=== PATIENT | male | born 1980 | race African-American/Black ===

== ENCOUNTER 2017-07-15 15:37 | Emergency (ER) | payer SELFPAY ==
[~2017-07-15] VITALS: Ht 180.3 cm; Wt 75.0 kg
[~2017-07-15 15:37] MED LIST: CEPH500C3 PO; IBUP800T23 PO; LORTA5 PO; Z.0.NO CURRENT MEDS
[2017-07-15 15:52] VITALS: BP 144/97; PULSE 95; RESP 16; TEMP 98.9; O2SAT 98
[2017-07-15] MEDS ORDERED: IBUPROFEN 800 MG TAB PO ONE (16:15)
--- NOTE | 2017-07-15 16:38 | RADRPT ---
EXAM DATE/TIME: 07/15/2017 16:14 [place] COMPARISON: No previous studies available for comparison. INDICATIONS : Left heel pain, fell landed on heel MEDICAL HISTORY : None. SURGICAL HISTORY : None. ENCOUNTER: Initial ACUITY: 2 days PAIN SCORE: 10/10 LOCATION: Left Heel FINDINGS: Two view examination of the left heel demonstrates the trabecula to be intact with no evidence of fra cture. There is a normal calcaneal angle. The soft tissues are of normal thickness. CONCLUSION: 1. No acute fracture or dislocation. Pablo Bethea MD on July 15, 2017 at 16:35 Board Certified Radiologist. This report was verified electronically.
[2017-07-15] MEDS ORDERED: IBUP1TAB7 PO (16:51)
--- NOTE | 2017-07-15 16:51 | PD ---
HPI Chief Complaint: Injury Time Seen by Provider: 16:00 Travel History International Travel<30 days: No Contact w/Intl Traveler<30days: No Traveled to known affect area: No History of Present Illness HPI 36-year-old male presents to emergency department complaining of left heel pain after injuring it from jumping off of a roof approximately 10 feet today. He said he was on the roof sleeping and he thought he was young and jumped off. Has been ambulatory on the affected extremity. Denies paresthesias, loss of sensation, decreased range of motion, decreased strength to the affected extremity. Denies hip pain or knee pain. Describes the pain as throbbing. Rates a 10/10. Aggravated with ambulation and palpation to the area. Decreased while at rest. Has not taken any medications or try any treatments to alleviate his symptoms. No primary care provider. No known allergies. Denies significant past medical history. Has no other medical complaints. No other modifying factors or associated signs and symptoms. PFSH Past Medical History Diminished Hearing: No Hypertension: Yes Social History Alcohol Use: Yes (STATES SEVERAL TIMES A WEEK) Tobacco Use: Yes (1/2 PPD) Substance Use: No (DENIES) Allergies-Medications (Allergen,Severity, Reaction): Coded Allergies: No Known Allergies (Unverified Adverse Reaction, Unknown, 07/15/17) Reported Meds & Prescriptions Reported Meds & Active Scripts Active Ibuprofen 800 Mg Tab 800 Mg PO Q6HR PRN Review of Systems Except as stated in HPI: all other systems reviewed are Neg Physical Exam Narrative GENERAL: Well-nourished, well-developed black male patient, in no acute distress SKIN: Warm and dry. HEAD: Atraumatic. Normocephalic. EYES: Pupils equal and round. No scleral icterus. No injection or drainage. ENT: Mucosa pink and moist. Airway patent. NECK: Trachea midline. CARDIOVASCULAR: Regular rate. RESPIRATORY: No accessory muscle use. GASTROINTESTINAL: Flat. MUSCULOSKELETAL: Left heel is without erythema, edema, ecchymosis; with tenderness on palpation; no obvious deformity. Left ankle is without erythema, edema, ecchymosis and without tenderness on palpation to all aspects. Left knee is with full range of motion without tenderness to palpation to the knee and just below the knee. Left lower extremity is supple nontender with 2+ pedal pulse and sensory intact and without erythema or edema; with full range of motion. No obvious deformities. No clubbing. No cyanosis. No edema. NEUROLOGICAL: Awake and alert. Oriented 3. No obvious cranial nerve deficits. Motor grossly within normal limits. Normal speech. PSYCHIATRIC: Appropriate mood and affect; insight and judgment normal. Data Data Last Documented VS Vital Signs Date Time Temp Pulse Resp B/P (MAP) Pulse Ox O2 Delivery O2 Flow Rate FiO2 07/15/17 15:52 98.9 95 16 144/97 (113) 98 Orders Orders Crutches (07/15/17 16:04) Foot, Heel Only ([id number]) (07/15/17 ) Ibuprofen (Motrin) (07/15/17 16:15) Ed Discharge Order (07/15/17 16:51) [facility] Medical Decision Making Medical Screen Exam Complete: Yes Emergency Medical Condition: Yes Medical Record Reviewed: Yes Differential Diagnosis Heel fracture, foot sprain, contusion Narrative Course 36-year-old male with left heel injury. Left heel x-ray with no acute findings. Ibuprofen administered in the ER appear crutches provided for support. Instructed patient to follow-up if symptoms persist. Ibuprofen prescribed for home. Instructed patient to follow up with primary care provider. Patient verbalizes understanding and agreement with treatment plan. Patient is medically cleared and stable for discharge. Discussed reasons to return to the emergency department. Patient agrees with treatment plan. The patients vital signs are stable and the patient is stable for outpatient follow- up and treatment. Patient discharged home, stable and in no acute distress. Diagnosis Primary Impression: Injury of left heel Qualified Codes: S99.922A - Unspecified injury of left foot, initial encounter Referrals: [facility] Primary Care Physician Patient Instructions: Contusion in Adults (ED), Crutch Instructions (ED), Foot Sprain (ED), General Instructions Additional Instructions: Tylenol or ibuprofen as directed and as needed for pain and inflammation Rest, ice, compress, and elevate extremity to decrease pain and inflammation Crutches for support Avoid aggravating activity; increase activity as tolerated Follow-up with primary care provider Return to the emergency department immediately with worsening of symptoms Med/Other Pt SpecificInfo: Prescription(s) given Scripts Ibuprofen (Ibuprofen) 800 Mg Tab 800 MG PO Q6HR Y for PAIN, #30 TAB 0 Refills Prov: María Elena Levy 07/15/17 Disposition: 01 DISCHARGE HOME Condition: Stable María Elena Levy July 15, 2017 16:51
== END 2017-07-15 17:15 | disposition home or self-care (01) ==
LOC: NEPD 15:37
DX: S99.922A Unspecified injury of left foot, initial encounter (principal); I10 Essential (primary) hypertension; F17.210 Nicotine dependence, cigarettes, uncomplicated; Y93.39 Activity, other involving climbing, rappelling and jumping off
CPT/HCPCS: 73650; 99283; E0113